=== PATIENT | female | born 1970 | race Two or more races ===

== ENCOUNTER 2022-03-14 00:28 | Emergency (ER) | payer SELFPAY ==
[~2022-03-14] VITALS: Ht 160 cm; Wt 180.0 kg
[2022-03-14 02:48] LABS: Basophils # (auto) 0 10 ^3/uL (0-0.2); Basophils % (auto) 0.1 % (0.0-2.0); Eosinophils # (auto) 0.3 10 ^3/uL (0-0.8); Eosinophils % (auto) 1.9 % (0.0-7.0); Hematocrit 43.1 % (36.0-46.0); Hemoglobin 14.3 g/dL (12.2-16.2); Lymphocytes # (auto) 1.6 10 ^3/uL (0.4-5.4); Lymphocytes % (auto) 9.9 % (10.0-50.0); Mean Corpuscular Hemoglobin 28.1 pg (28.0-32.0); Mean Corpuscular Hgb Conc. 33.2 g/dL (32.0-36.0); Mean Corpuscular Volume 84.8 fL (80.0-100.0); Monocytes # (auto) 0.6 10 ^3/uL (0-1.3); Monocytes % (auto) 4.1 % (0.0-12.0); Neutrophils # (auto) 13.2 10 ^3/uL (1.6-8.6); Red Blood Cells 5.08 10^6/uL (4.0-5.20); Red Cell Distribution Width 14.2 % (11.8-14.3); White Blood Cell 15.8 10^3/uL (4.4-10.8)
[2022-03-14 03:03] LABS: Albumin 3.6 g/dL (3.4-5.0); Anion Gap 10 (5-15); Calcium 8.5 mg/dL (8.5-10.1); Carbon Dioxide 21 mmol/L (21-32); Chloride 107 mmol/L (98-107); Glucose 183 mg/dL (74-106); Potassium 3.8 mmol/L (3.5-5.1); Sodium 138 mmol/L (136-145)
[2022-03-14 03:06] LABS: Alanine Aminotransferase 36 U/L (13-56); Alkaline Phosphatase 134 U/L (45-117); Aspartate Aminotransferase 20 U/L (15-37); BUN/Creatinine Ratio 21.7; Bilirubin, Total 0.3 mg/dL (0.2-1.0); Blood Urea Nitrogen 20 mg/dL (7-18); GFR African American 83 mL/min; GFR Non-African American 68 mL/min
[2022-03-14 07:49] VITALS: BP 126/74
== END 2022-03-14 07:49 | disposition home or self-care (01) ==
LOC: ER 00:28 → EDBD 00:28 → EDSEX 00:28 → ER 07:49
DX: R25.2 Cramp and spasm (principal); E11.9 Type 2 diabetes mellitus without complications
CPT/HCPCS: 36415; 80053; 84484; 85025; 93005